=== PATIENT | male | born 1930 | race Caucasian/White ===

== ENCOUNTER 2018-10-03 17:52 | Emergency (ER) | payer SELFPAY ==
[~2018-10-03] VITALS: Ht 162.6 cm; Wt 75.7 kg
[2018-10-03 18:07] VITALS: BP 181/75
--- NOTE | 2018-10-03 19:16 | NUR ---
87 Y/O M PRESENTED TO ED WITH C/O DIZZINESS X5 WEEKS. PER PT, " WHEN I STAND OR MOVE TO FAST I GET REAL DIZZY. WHEN I LAY FLAT I FEEL LIKE THE ROOM IS SPINNING." RECENTLY DIAGNOSED WITH HTN, HAS NOT FILLED PRESCRIPTION. DENIES VISON CHANGES. FAMILY AT BEDSIDE. BEDRAIL X1 UP. ERMD NOTIFIED. WILL CONTINUE TO MONITOR.
--- NOTE | 2018-10-03 19:17 | NUR ---
PT TAKEN TO BED 3
--- NOTE | 2018-10-03 19:31 | NUR ---
PT TAKEN TO RADIOLODY.
--- NOTE | 2018-10-03 20:28 | NUR ---
Dr. Priest evaluating patient at bedside.
[2018-10-03 20:40] VITALS: BP 150/58
--- NOTE | 2018-10-03 20:40 | NUR ---
Patient discharged with v/s stable. Written and verbal after care instructions given and explained. Patient alert, oriented and verbalized understanding of instructions. Ambulatory with steady gait. All questions addressed prior to discharge. ID band removed. Patient advised to follow up with PMD. Rx of Mezclizine hydrochloride given. Patient educated on indication of medication including possible reaction and side effects. Opportunity to ask questions provided and answered.
== END 2018-10-03 20:40 | disposition home or self-care (01) ==
LOC: MED 17:52
DX: H81.10 Benign paroxysmal vertigo, unspecified ear (principal); I10 Essential (primary) hypertension
CPT/HCPCS: 70450; 99284

== ENCOUNTER 2018-10-04 11:45 | Emergency (ER) | payer OTHER, BC ==
[~2018-10-04] VITALS: Ht 165.1 cm; Wt 75.7 kg
[2018-10-04 11:46] VITALS: BP 198/75
--- NOTE | 2018-10-04 12:00 | NUR ---
PT AMBULATED TO BED 12
--- NOTE | 2018-10-04 12:18 | NUR ---
PT C/O DIZZINESS AND HIGH BP WORSENING SINCE BEING SEEN HERE YESTERDAY. PT STATES "I DON'T UNDERSTAND WHY HE GOT MECLIZINE HE NEEDS BLOOD PRESSURE MEDS". PT IS A/OX4, HAS UNSTEADY GAIT, DENIES CP/SOB/NVD. HEART SOUNDS ARE EVEN AND REGULAR, NSR ON MONITOR, LUNGS ARE CLEAR BILAT THROUGHOUT. PT PLACED ON FULL MONITOR, BED IN LOW POSITION AND LOCKED, SIDE RAILS UP X 1.
--- NOTE | 2018-10-04 12:18 | NUR ---
DR. SILVA AT BEDSIDE
--- NOTE | 2018-10-04 12:32 | NUR ---
LAB AT BEDSIDE
--- NOTE | 2018-10-04 12:34 | NUR ---
XRAY AT BEDSIDE
[2018-10-04 13:16] LABS: ANION GAP 9.1 (8-16); CHLORIDE 103 mmol/L (98-107); CREATININE 1.2 mg/dL (0.7-1.3); GLUCOSE 87 mg/dL (74-106); POTASSIUM 4.1 mmol/L (3.5-5.1); SODIUM SERUM 138 mmol/L (136-145); UREA NITROGEN, BLOOD 20 mg/dL (7-18)
[2018-10-04 13:20] LABS: BASOPHILS % (AUTO) 0.5 % (0.0-2.0); EOSINOPHILS # (AUTO) 0.2 K/uL (0-0.4); EOSINOPHILS % (AUTO) 3.2 % (0.0-4.0); HEMATOCRIT 37.8 % (36-52); HEMOGLOBIN 12.6 g/dL (12.0-18.0); LYMPHOCYTES # (AUTO) 2.2 K/uL (2.0-11.5); LYMPHOCYTES % (AUTO) 32.5 % (20.5-51.1); MEAN CORPUSCULAR HEMOGLOBIN 29 pg (27-31); MEAN CORPUSCULAR HGB CONC 33 g/dL (33-37); MEAN CORPUSCULAR VOLUME 87.3 fL (80-94); MONOCYTES # (AUTO) 0.7 K/uL (0.8-1.0); MONOCYTES % (AUTO) 9.6 % (1.7-9.3); NEUTROPHILS # (AUTO) 3.7 K/uL (1.8-7.7); NEUTROPHILS % (AUTO) 54.2 % (42.2-75.2); PLATELET COUNT (AUTO) 214 K/uL (140-450); RED BLOOD CELL COUNT(AUTO) 4.33 MIL/uL (4.20-6.10); RED CELL DISTRIBUTION WIDTH 13.8 % (11.6-13.7); WHITE BLOOD COUNT (AUTO) 6.9 K/uL (4.8-10.8)
[2018-10-04 13:21] LABS: ALBUMIN 3.4 g/dL (3.4-5.0); ASPARTATE AMINOTRANSFERASE 20 U/L (15-37); TOTAL BILIRUBIN 0.2 mg/dL (0.0-1.0)
[2018-10-04 13:56] LABS: CREATINE KINASE MB 1.9 ng/mL (0-3.6)
[2018-10-04 14:13] VITALS: BP 175/81
--- NOTE | 2018-10-04 14:31 | NUR ---
Patient discharged with v/s stable. Written and verbal after care instructions given and explained. Patient alert, oriented and verbalized understanding of instructions. Ambulatory with steady gait. All questions addressed prior to discharge. ID band removed. Patient advised to follow up with PMD. Rx of HYDROCHLOROTHIAZIDE given. Patient educated on indication of medication including possible reaction and side effects. Opportunity to ask questions provided and answered.
== END 2018-10-04 14:31 | disposition home or self-care (01) ==
LOC: MED 11:45
DX: R42 Dizziness and giddiness (principal); I10 Essential (primary) hypertension
CPT/HCPCS: 36415; 71045; 80053; 81002; 82550; 82553; 84484; 85025; 93005; 99284; Q0092